=== PATIENT | female | born 1995 | race Caucasian/White ===

== ENCOUNTER 2022-10-04 10:15 | Emergency (ER) | payer MEDICAID, OTHER ==
[~2022-10-04] VITALS: Ht 160 cm; Wt 68.0 kg
[2022-10-04 10:16] VITALS: BP 137/96
[2022-10-04] MEDS ORDERED: SIMV10TA21 (10:43)
[2022-10-04] MEDS ORDERED: ERGO500029 (10:43)
[2022-10-04] MEDS ORDERED: CLEO300C2 PO (11:27)
== END 2022-10-04 11:35 | disposition home or self-care (01) ==
LOC: M ED 10:15
DX: J02.0 Streptococcal pharyngitis (principal); E78.5 Hyperlipidemia, unspecified; Z88.0 Allergy status to penicillin; Z79.899 Other long term (current) drug therapy; Z79.02 Long term (current) use of antithrombotics/antiplatelets; Z79.2 Long term (current) use of antibiotics